=== PATIENT | male | born 1960 | race African-American/Black ===

== ENCOUNTER 2018-12-28 05:21 | Inpatient (IN) | payer OTHER ==
[2018-12-28] MEDS ORDERED: LACTATED RINGER'S 1,000 ML IV* (07:00)
[2018-12-28] MEDS ORDERED: PROPOFOL 20 ML (07:07)
[2018-12-28] MEDS ORDERED: NEOSTIGMINE 3 MG/3 ML SYRINGE (07:07)
[2018-12-28] MEDS ORDERED: SUCCINYLCHOLINE CHLORIDE 100 MG/5 ML SYG IV (07:07)
[2018-12-28] MEDS ORDERED: GLYCOPYRROLATE 0.4 MG INJ (07:07)
[2018-12-28] MEDS ORDERED: ROCURONIUM 50 MG INJ ×2 (07:07→08:32)
[2018-12-28] MEDS ORDERED: FENTAnyl 50 MCG/ML VIAL ×2 (07:07→09:29)
[2018-12-28] MEDS ORDERED: MIDAZOLAM 1 MG/ML 2 ML INJ (07:07)
[2018-12-28] MEDS ORDERED: CEFAZOLIN 1 GM INJ (07:07)
[2018-12-28] MEDS ORDERED: DEXAMETHASONE 4 MG/ML 5 ML INJ (07:08)
[2018-12-28] MEDS ORDERED: METOCLOPRAMIDE 10 MG INJ (07:08)
[2018-12-28] MEDS ORDERED: ONDANSETRON 4 MG INJ (07:08)
[2018-12-28] MEDS: CEFAZOLIN 2 GM/50 ML (PMX) 50 ML IVPB (07:15)
[2018-12-28] MEDS ORDERED: DIPHENHYDRAMINE 25 MG CAP PO (07:30)
[2018-12-28] MEDS ORDERED: DIPHENHYDRAMINE 50 MG INJ IV ×2 (07:30→08:30)
[2018-12-28] MEDS ORDERED: ACETAMINOPHEN 325 MG TAB PO (07:30)
[2018-12-28] MEDS ORDERED: NALOXONE (0.4 MG/ML) INJ IV (07:30)
[2018-12-28] MEDS ORDERED: BISACODYL 10 MG SUPP PR (07:30)
[2018-12-28] MEDS ORDERED: ONDANSETRON 4 MG INJ IV ×2 (07:30→08:30)
[2018-12-28] MEDS ORDERED: HYDROmorphONE 0.5 MG/0.5 ML SYG IV (07:30)
[2018-12-28] MEDS ORDERED: CEPASTAT LOZENGE MT (07:30)
[2018-12-28] MEDS: CEFAZOLIN 1 GM/50 ML (PMX) 50 ML IVPB ×3 (07:30→23:21)
[2018-12-28] MEDS ORDERED: AL HYDROX/MG HYDROX/SIMETH 30 ML CUP PO (07:30)
[2018-12-28] MEDS: THROMBIN 5000 UNIT VIAL (07:33)
[2018-12-28] MEDS: POLYMYXIN/BACITRACIN 1L IRRIG (07:33)
[2018-12-28] MEDS: BUPIVACAINE 0.5%/EPI (SDV) 30 ML INJ (07:33)
[2018-12-28] MEDS: SURGIFOAM POWDER 1 GM KIT (07:33)
[2018-12-28] MEDS: HEPARIN 1000 UNITS/ML 10 ML INJ (07:46)
[2018-12-28] MEDS ORDERED: PHENYLephrine 10 MG INJ (08:08)
[2018-12-28] MEDS ORDERED: hydrALAzine 20 MG INJ IV (08:30)
[2018-12-28] MEDS ORDERED: LABETALOL HCL 20MG INJ IV (08:30)
[2018-12-28] MEDS ORDERED: MEPERIDINE 25 MG INJ IV (08:30)
[2018-12-28] MEDS ORDERED: HALOPERIDOL 5 MG INJ IV (08:30)
[2018-12-28] MEDS ORDERED: morphine (1 MG/ML) 10ML SYRINGE IV (08:30)
[2018-12-28] MEDS ORDERED: LORAZEPAM 2 MG INJ IV (08:30)
[2018-12-28] MEDS ORDERED: FENTAnyl 50 MCG/ML VIAL IV (08:30)
[2018-12-28] MEDS ORDERED: OXYCODONE/ACETAMINOPHEN (5/325) TAB PO (08:30)
[2018-12-28] MEDS ORDERED: PROCHLORPERAZINE 10 MG INJ IV (08:30)
[2018-12-28] MEDS ORDERED: HYDROmorphONE 1 MG/5 ML IV SYRINGE IV (08:30)
[2018-12-28] MEDS ORDERED: METOCLOPRAMIDE 10 MG INJ IV (08:30)
[2018-12-28] MEDS ORDERED: BUPIVACAINE 0.25% (MPF) 30 ML INJ (09:22)
[2018-12-28] MEDS: HYDROmorphONE 0.2 MG/ML PCA IV (10:27)
[2018-12-28] MEDS: DOCUSATE SODIUM 100 MG CAP PO ×2 (10:32→21:18)
[2018-12-28] MEDS: D5W-0.45 NACL + KCL 20 MEQ 1,000 ML IV ×2 (14:26→17:02)
[2018-12-28] MEDS: FAMOTIDINE 20 MG TAB PO (21:18)
[2018-12-28] MEDS: BUPROPION (SR) 150 MG TAB PO (21:18)
[2018-12-29] MEDS: D5W-0.45 NACL + KCL 20 MEQ 1,000 ML IV ×2 (03:02→13:02)
[2018-12-29] MEDS: HYDROmorphONE 0.2 MG/ML PCA IV (04:24)
[2018-12-29 05:14] LABS: ADD MAN DIFF? NO
[2018-12-29 05:15] LABS: WHITE BLOOD COUNT 11.7 10^3/ul (4.8-10.8)
[2018-12-29 05:15] LABS: BASOPHILS % 0.3 % (0.0-2.0); HEMATOCRIT 36.9 % (42.0-52.0); HEMOGLOBIN 11.9 g/dl (14.0-18.0); LYMPHOCYTES # 1.7 10^3/ul (0.8-2.9); LYMPHOCYTES % 14.6 % (15.0-51.0); MEAN CORPUSCULAR HEMOGLOBIN 29.1 pg (29.0-33.0); MEAN CORPUSCULAR HGB CONC 32.2 g/dl (32.0-37.0); MEAN CORPUSCULAR VOLUME 90.2 fl (82.0-101.0); MEAN PLATELET VOLUME 9.1 fl (7.4-10.4); MONOCYTE # 1.1 10^3/ul (0.3-0.9); MONOCYTES % 9.5 % (0.0-11.0); NEUTROPHIL # 8.8 10^3/ul (1.6-7.5); NEUTROPHILS % 75.2 % (39.0-77.0); PLATELET COUNT 355 10^3/UL (140-415); RED BLOOD COUNT 4.09 10^6/ul (4.70-6.10); RED CELL DISTRIBUTION WIDTH 14.3 % (11.5-14.5)
[2018-12-29 05:35] LABS: ANION GAP 15 (5-13); BLOOD UREA NITROGEN 24 mg/dl (7-20); CALCIUM 9.1 mg/dl (8.4-10.2); CARBON DIOXIDE 26 mmol/L (21-31); CHLORIDE 97 mmol/L (97-110); CREATININE 1.08 mg/dl (0.61-1.24); Estimated GFR > 60 mL/min (>60); GLUCOSE 123 mg/dl (70-220); MAGNESIUM 1.9 mg/dl (1.7-2.5); POTASSIUM 4.9 mmol/L (3.5-5.1); SODIUM 138 mmol/L (135-144)
[2018-12-29] MEDS: FAMOTIDINE 20 MG TAB PO (08:21)
[2018-12-29] MEDS: BUPROPION (SR) 150 MG TAB PO (08:21)
[2018-12-29] MEDS: AMLODIPINE 10 MG TAB PO (08:21)
[2018-12-29] MEDS: DOCUSATE SODIUM 100 MG CAP PO (08:22)
[2018-12-29] MEDS: HYDROCODONE/APAP (10/325) TAB PO ×3 (08:33→17:22)
[2018-12-29] MEDS ORDERED: HYDROCODONE/APAP (10/325) TAB PO (09:30)
[2018-12-29] MEDS: CYCLOBENZAPRINE 10 MG TAB PO (14:54)
== END 2018-12-29 19:00 | disposition home or self-care (01) | DRG 520 ==
LOC: REC 05:21 → MS1 11:15
PROC: 01NB0ZZ Release Lumbar Nerve, Open Approach (ICD-10-PCS; principal; 2018-12-28 07:00)
PROC: 0SB20ZZ Excision of Lumbar Vertebral Disc, Open Approach (ICD-10-PCS; 2018-12-28 07:00)
DX: M51.16 Intervertebral disc disorders with radiculopathy, lumbar region (principal); I10 Essential (primary) hypertension; F32.9 Major depressive disorder, single episode, unspecified
CPT/HCPCS: 72020; 80048; 83735; 85025; 86999; 88304; 97110; 97116; 97161; 97530